=== PATIENT | female | born 1965 | race Caucasian/White ===

== ENCOUNTER → 2016-07-05 | Outpatient (CLI) | payer MEDICAID | LOC: FIMAGING 14:40 | DX: G43.709 Chronic migraine without aura, not intractable, without status migrainosus (principal); R51 Headache; S09.93XD Unspecified injury of face, subsequent encounter; F07.81 Postconcussional syndrome ==

== ENCOUNTER → 2016-07-06 | Outpatient (CLI) | payer MEDICAID | LOC: BRMIMAGING 12:55 | DX: Z90.710 Acquired absence of both cervix and uterus (principal) | CPT/HCPCS: 76770-PO; 76856-PO ==

== ENCOUNTER → 2016-07-07 | Outpatient (CLI) | payer MEDICAID ==
[~2016-07-07] MED LIST: IOPAMIDOL (ISOVUE-300) 100 ML BTL IV ONE
== END ==
LOC: FIMAGING 12:07
DX: M12.88 Other specific arthropathies, not elsewhere classified, other specified site (principal); M43.12 Spondylolisthesis, cervical region; M99.71 Connective tissue and disc stenosis of intervertebral foramina of cervical region; M48.02 Spinal stenosis, cervical region
CPT/HCPCS: Q9967

== ENCOUNTER → 2016-07-20 | Outpatient (CLI) | payer MEDICAID | LOC: FIMAGING 08:35 | PROVIDERS: ATTEND Internal Medicine Gastroenterology | DX: K31.84 Gastroparesis (principal) | CPT/HCPCS: A9541 ==

== ENCOUNTER 2017-02-23 21:07 | Emergency (ER) | payer MEDICAID ==
[2017-02-23] MEDS ORDERED: DIAZEPAM 10 MG/2 ML SYR IVP ONE (21:31)
--- NOTE | 2017-02-23 21:31 | EDPHY ---
H & P Time Seen by Provider: 02/23/17 21:16 HPI/ROS: CHIEF COMPLAINT: Severe neck pain, weakness left arm HISTORY OF PRESENT ILLNESS: 51-year-old female presents to the emergency department with severe neck pain and weakness in the left upper extremity. The patient has had a history of severe neck pain. The patient presents to the emergency department now with weakness in the left upper extremity. She had a recent steroid injection done 1 week ago in her neck without relief. She has had ongoing problems but today developed weakness in her left arm and does not feel that she can move her neck without severe pain. She feels that her neck is "very weak ". Denies back pain. Denies chest pain or difficulty breathing. Denies abdominal pain or vomiting. No other new reported trauma. REVIEW OF SYSTEMS: Constitutional: No fever, no chills. Eyes: No double or blurry vision. ENT: No sore throat. Respiratory: No cough, no shortness of breath. Cardiac: No chest pain. Gastrointestinal: No abdominal pain, vomiting or diarrhea. Genitourinary: No dysuria. Musculoskeletal: As above. No back pain. Skin: No rashes. Neurological: No headache. Past Medical/Surgical History: Chronic neck pain Social History: and lives in [place] Smoking Status: Never smoked Physical Exam: General Appearance: Alert, moderate distress. Tearful, holding her left side of her neck. Eyes: Pupils equal and round. Extraocular motions are all intact. ENT: Mouth: Mucous membranes moist. Respiratory: No wheezing, rhonchi, or rales, lungs are clear to auscultation. Cardiovascular: Regular rate and rhythm. Gastrointestinal: Abdomen is soft and nontender, no masses, no rebound or guarding, bowel sounds normal. Neurological: Alert and oriented x 3, cranial nerves II through XII grossly intact Skin: Warm and dry, no rashes. Musculoskeletal: Nontender to palpate along the cervical, thoracic or lumbar spine. Neck is supple. Extremities: Weakness in her cullet crusher and washer in the left hand compared to the right. Weakness in her biceps and triceps on the left side. Psychiatric: Patient is oriented X 3, there is no agitation. Constitutional: Initial Vital Signs Temperature (C) 36.9 C 02/23/17 21:16 Heart Rate 79 02/23/17 21:16 Respiratory Rate 18 02/23/17 21:16 Blood Pressure 141/81 H 02/23/17 21:16 O2 Sat (%) 97 02/23/17 21:16 O2 Delivery Mode Room Air Allergies/Adverse Reactions: erythromycin base Allergy (Verified 02/23/17 21:20) Penicillins Allergy (Verified 02/23/17 21:20) soy Allergy (Verified 02/23/17 21:20) Home Medications: Medication Instructions Recorded Ondansetron Odt [Zofran Odt] 4 - 8 mg PO Q4PRN PRN #4 tab 07/05/15 Phenazopyridine HCl [Pyridium 200 mg PO TID PRN #6 tab 07/05/15 200mg (RX)] Sulfamethox/Tmp 800/160 mg 1 tab PO BID #14 tab 07/05/15 [Bactrim Ds] Medical Decision Making - Diagnostics Imaging Results: Imaging Impressions Cervical Spine MRI 02/23/17 21:25 Impression: 1. Left foraminal stenoses, mild at C2-C3, moderate to severe at C3-C4, moderate C4-C5 and mild at C5-C6. 2. Canal compromise, mild from C2 to C5, moderate at C5-C6. 3. No cord signal abnormalities. 4. Allowing for differences in modality, findings are similar to CT cervical spine dated 07/07/2016. Dr. Gu discussed these findings by telephone with UMESH HERNANDEZ on 2016 at 23:51. Imaging: Discussed imaging studies w/ audio specialist Radiologist, I viewed and interpreted images myself ED Course/Re-evaluation: 51-year-old female presents to the emergency department with severe neck pain and left arm weakness. Patient has a known history of degenerative disc disease. She had a recent steroid injection 1 week ago without relief. MRI of the cervical spine has been ordered and is pending. Patient received 5 mg of IV Valium. MRI of the cervical spine reveals diffuse degenerative changes without any cord signal abnormality. This was compared with CT scan of the cervical spine from June of 2016. I spoke with Dr. Jorge Wagner, on-call neurosurgeon, who recommends that the patient be admitted for pain control to the hospitalist if she requires that , however he did not want her to have any narcotic medication or any benzodiazepines. This was explained to the patient. She understands that she will not receive narcotics while in the emergency department. The patient states that she will take her own narcotic medication then. She understands that she will not receive narcotic medication in the hospital. I recommended that she have close follow-up with her neurosurgeon. She was offered admission to the hospital with consultation with Neurosurgery and the patient agrees. I did offer Toradol IV for her pain and the patient refused. 1:11 a.m.: The patient does not want to be admitted to the hospital she is leaving the emergency department on her own accord. As she is leaving she is able to put her own she was on. She is able to dress herself. She is ambulatory. Differential Diagnosis: Including but not limited to herniated nucleus pulposus, vertebral body fracture , cord injury, degenerative disc disease, muscular spasm - Data Points Medications Given: Discontinued Medications Diazepam (Valium Injection) 5 mg IVP EDNOW ONE Stop: 02/23/17 21:32 Last Admin: 02/23/17 21:45 Dose: 5 mg Methylprednisolone Sodium Succinate (Solu-Medrol) 125 mg IVP EDNOW ONE Stop: 02/24/17 00:14 Last Admin: 02/24/17 00:21 Dose: 125 mg Departure - Departure Clinical Impression: Chronic neck pain, Weakness of left upper extremity Condition: Good Instructions: Neck Pain (ED) Additional Instructions: You declined admission to the hospital. You should have close follow-up with your neurosurgeon this week to recheck. Referrals: Will Dela Cruz MD [Medical Doctor] - 1-2 days without fail (Neurosurgeon)
[2017-02-23 23:07] VITALS: RESP 16
[2017-02-24] MEDS ORDERED: methylPREDNISolone SOD SUCC 125 MG/2 ML VIAL IVP ONE (00:13)
[2017-02-24 00:22] VITALS: TEMP 97.9
[2017-02-24 01:17] VITALS: BP 113/64; PULSE 66; O2SAT 96
== END 2017-02-24 01:17 | disposition home or self-care (01) ==
DX: M54.2 Cervicalgia (principal); G89.29 Other chronic pain; M62.81 Muscle weakness (generalized)
CPT/HCPCS: 96374; J2930

== ENCOUNTER 2017-06-02 10:18 | Emergency (ER) | payer OTHER, MEDICAID ==
[2017-06-02 10:28] VITALS: TEMP 98
--- NOTE | 2017-06-02 10:58 | EDPHY ---
H & P Stated Complaint: gu- surg 1 month ago Time Seen by Provider: 06/02/17 10:30 HPI/ROS: CHIEF COMPLAINT: Urinary infection HISTORY OF PRESENT ILLNESS: Patient is a 51-year-old female with a history of cystocele with surgical repair 6 months ago in [place]. She states that she has been taking Macrobid for the last 6 days. She states that she is having frequent urination as well as burning and some right flank pain. She occasionally has to self cath in order to urinate. When she does that she notices some blood. It is also very painful to self catheterization. She tried calling her surgeon's office but was not able to get through. She has been texting him. She has not had a fever. No nausea vomiting. No abdominal pain. REVIEW OF SYSTEMS: Constitutional: denies: chills, fever, recent illness, recent injury EENTM: denies: blurred vision, double vision, nose congestion Respiratory: denies: cough, shortness of breath Cardiac: denies: chest pain, irregular heart rate, lightheadedness, palpitations Gastrointestinal/Abdominal: denies: abdominal pain, diarrhea, nausea, vomiting, blood streaked stools Genitourinary: See HPI Musculoskeletal: denies: joint pain, muscle pain Skin: denies: lesions, rash, jaundice, bruising Neurological: denies: headache, numbness, paresthesia, tingling, dizziness, weakness Hematologic/Lymphatic: denies: blood clots, easy bleeding, easy bruising Immunologic/allergic: denies: HIV/AIDS, transplant EXAM: GENERAL: Well-appearing, well-nourished and in no acute distress. HEAD: Atraumatic, normocephalic. EYES: Pupils equal round and reactive to light, extraocular movements intact, sclera anicteric, conjunctiva are normal. ENT: TMs normal, nares patent, oropharynx clear without exudates. Moist mucous membranes. NECK: Normal range of motion, supple without lymphadenopathy or JVD. LUNGS: Breath sounds clear to auscultation bilaterally and equal. No wheezes rales or rhonchi. HEART: Regular rate and rhythm without murmurs, rubs or gallops. ABDOMEN: Soft, nontender, normoactive bowel sounds. No guarding, no rebound. No masses appreciated. No suprapubic tenderness BACK: No CVA tenderness, no spinal tenderness, step-offs or deformities EXTREMITIES: Normal range of motion, no pitting or edema. No clubbing or cyanosis. NEUROLOGICAL: Cranial nerves II through XII grossly intact. Normal speech, normal gait. 5/5 strength, normal movement in all extremities, normal sensation PSYCH: Normal mood, normal affect. SKIN: Warm, dry, normal turgor, no visible rashes or lesions. Source: Patient Exam Limitations: No limitations - Personal History LMP (Females 10-55): Post Menopausal Current Tetanus Diphtheria and Acellular Pertussis (TDAP): Unsure - Medical/Surgical History Hx Asthma: Yes Hx Chronic Respiratory Disease: No Hx Diabetes: No Hx Cardiac Disease: No Hx Renal Disease: No Hx Cirrhosis: No Hx Alcoholism: No Hx HIV/AIDS: No Hx Splenectomy or Spleen Trauma: No Other PMH: Pelvic intersital DX, frequent pylonephritis, multiple pelvic surgeries, rectocele, cystocele. - Family History Significant Family History: No pertinent family hx - Social History Smoking Status: Never smoked Alcohol Use: Sober Constitutional: Initial Vital Signs Temperature (C) 36.6 C 06/02/17 10:24 Heart Rate 77 06/02/17 10:24 Respiratory Rate 18 06/02/17 10:24 Blood Pressure 130/94 H 06/02/17 10:24 O2 Sat (%) 97 06/02/17 10:24 O2 Delivery Mode Room Air Allergies/Adverse Reactions: erythromycin base Allergy (Verified 02/23/17 21:20) Penicillins Allergy (Verified 02/23/17 21:20) soy Allergy (Verified 02/23/17 21:20) Home Medications: Medication Instructions Recorded Ketorolac Tromethamine [Toradol] 10 mg PO Q6H #16 tab 06/02/17 Macrobid 06/02/17 levOFLOXACIN [levAQUIN] 750 mg PO DAILY #10 tab 06/02/17 Medical Decision Making ED Course/Re-evaluation: The patient states that Levaquin is worked well for her in the past. I will add this to the Macrobid. She is not . White count is reassuring. 11:50 a.m. the patient is feeling much better after Toradol. She has been started on antibiotics. She will follow up with her surgeon. We discussed indications for returning. She is happy and laughing and declines further workup or testing at this time. Differential Diagnosis: Partial list of the Differential diagnosis considered include but were not limited to; urinary tract infection, bladder prolapse, urinary retention, pyelonephritis and although unlikely based on the history and physical exam, I also considered sepsis, rupture, perforation. I discussed these differential diagnoses and the plan with the patient as well as the usual and expected course. The patient understands that the diagnosis is provisional and that in medicine we are not always correct and that further workup is often warranted. Usual and customary warnings were given. All of the patient's questions were answered. The patient was instructed to return to the emergency department should the symptoms at all worsen or return, otherwise to followup with the physician as we discussed. - Data Points Laboratory Results: Laboratory Results 06/02/17 11:00 06/02/17 11:06/02/17 06/02/17 06/02/17 11:00 11:00 11:00 WBC RBC Hgb Hct MCV MCH MCHC RDW Plt Count MPV Neut % (Auto) Lymph % (Auto) [place] % (Auto) Eos % (Auto) Baso % (Auto) Nucleat RBC Rel Count Absolute Neuts (auto) Absolute Lymphs (auto) Absolute Monos (auto) Absolute Eos (auto) Absolute Basos (auto) Absolute Nucleated RBC Immature Gran % Immature Gran # Sodium 142 mEq/L mEq/L (135-145) Potassium 4.0 mEq/L mEq/L (3.5-5.2) Chloride 102 mEq/L mEq/L (97-110) Carbon Dioxide 24 mEq/l mEq/l (22-31) Anion Gap 16 mEq/L mEq/L (8-16) BUN 12 mg/dL mg/dL (7-23) Creatinine 0.6 mg/dL mg/dL (0.6-1.0) Estimated GFR > 60 Glucose 93 mg/dL mg/dL (70-100) Calcium 9.3 mg/dL mg/dL (8.5-10.4) Beta HCG, Qual NEGATIVE Urine Color YELLOW Urine Appearance HAZY Urine pH 6.0 (5.0-7.5) Ur Specific [place] <= 1.005 (1.002-1.030) Urine Protein NEGATIVE (NEGATIVE) Urine Ketones NEGATIVE (NEGATIVE) Urine Blood 3+ H (NEGATIVE) Urine Nitrate NEGATIVE (NEGATIVE) Urine Bilirubin NEGATIVE (NEGATIVE) Urine Urobilinogen 0.2 EU EU (0.2-1.0) Ur Leukocyte Esterase NEGATIVE (NEGATIVE) Urine RBC >182 /hpf H /hpf (0-3) Urine WBC 0-1 /hpf /hpf (0-3) Ur Epithelial Cells 1+ /lpf /lpf (NONE-1+) Ur Renal Epithelial Cell 1+ /hpf H /hpf (NONE SEEN) Urine Bacteria 1+ /hpf H /hpf (NONE SEEN) Urine Mucus TRACE /lpf /lpf (NONE-1+) Urine Glucose NEGATIVE (NEGATIVE) 06/02/17 11:00 WBC 6.58 10^3/uL 10^3/uL (3.80-9.50) RBC 4.80 10^6/uL 10^6/uL (4.18-5.33) Hgb 14.8 g/dL g/dL (12.6-16.3) Hct 41.9 % % (38.0-47.0) MCV 87.3 fL fL (81.5-99.8) MCH 30.8 pg pg (27.9-34.1) MCHC 35.3 g/dL g/dL (32.4-36.7) RDW 12.5 % % (11.5-15.2) Plt Count 356 10^3/uL 10^3/uL (150-400) MPV 8.5 fL L fL (8.7-11.7) Neut % (Auto) 57.4 % % (39.3-74.2) Lymph % (Auto) 35.3 % % (15.0-45.0) [place] % (Auto) 5.3 % % (4.5-13.0) Eos % (Auto) 0.9 % % (0.6-7.6) Baso % (Auto) 0.8 % % (0.3-1.7) Nucleat RBC Rel Count 0.0 % % (0.0-0.2) Absolute Neuts (auto) 3.78 10^3/uL 10^3/uL (1.70-6.50) Absolute Lymphs (auto) 2.32 10^3/uL 10^3/uL (1.00-3.00) Absolute Monos (auto) 0.35 10^3/uL 10^3/uL (0.30-0.80) Absolute Eos (auto) 0.06 10^3/uL 10^3/uL (0.03-0.40) Absolute Basos (auto) 0.05 10^3/uL 10^3/uL (0.02-0.10) Absolute Nucleated RBC 0.00 10^3/uL 10^3/uL (0-0.01) Immature Gran % 0.3 % % (0.0-1.1) Immature Gran # 0.02 10^3/uL 10^3/uL (0.00-0.10) Sodium Potassium Chloride Carbon Dioxide Anion Gap BUN Creatinine Estimated GFR Glucose Calcium Beta HCG, Qual Urine Color Urine Appearance Urine pH Ur Specific [place] Urine Protein Urine Ketones Urine Blood Urine Nitrate Urine Bilirubin Urine Urobilinogen Ur Leukocyte Esterase Urine RBC Urine WBC Ur Epithelial Cells Ur Renal Epithelial Cell Urine Bacteria Urine Mucus Urine Glucose Medications Given: Discontinued Medications Hydromorphone HCl (Dilaudid) 0.5 mg IVP EDNOW ONE Stop: 06/02/17 11:05 Last Admin: 06/02/17 11:13 Dose: 0.5 mg Ketorolac Tromethamine (Toradol) 15 mg IVP EDNOW ONE Stop: 06/02/17 11:28 Last Admin: 06/02/17 11:36 Dose: 30 mg Levofloxacin (Levaquin) 750 mg PO EDNOW ONE PRN Reason: Protocol Stop: 06/02/17 11:23 Last Admin: 06/02/17 11:36 Dose: 750 mg Ondansetron HCl (Zofran) 4 mg IVP EDNOW ONE Stop: 06/02/17 11:05 Last Admin: 06/02/17 11:13 Dose: 4 mg Departure - Departure Disposition: Home, Routine, Self-Care Clinical Impression: Urinary tract infection Qualifiers: Urinary tract infection type: acute cystitis Hematuria presence: with hematuria Qualified Code(s): N30.01 - Acute cystitis with hematuria Condition: Fair Instructions: Ketorolac (By mouth), Levofloxacin (By mouth), Urinary Tract Infection in Women (ED), Catheter-associated Urinary Tract Infection (ED) Additional Instructions: Do not take ibuprofen if your taking the ketorolac. Referrals: CARY FORD [Other] - As per Instructions Prescriptions: Ketorolac Tromethamine [Toradol] 10 mg PO Q6H #16 tab levOFLOXACIN [levAQUIN] 750 mg PO DAILY #10 tab
[2017-06-02] MEDS ORDERED: HYDROmorphONE/DILAUDID 1 MG/ML INJ IVP ONE (11:04)
[2017-06-02] MEDS ORDERED: ONDANSETRON 4 MG/2 ML VIAL IVP ONE (11:04)
[2017-06-02 11:05] LABS: PLATELET COUNT 356 10^3/uL (150-400)
[2017-06-02] MEDS ORDERED: KETOROLAC 30 MG/1 ML SDV IVP ONE (11:27)
[2017-06-02 12:25] VITALS: BP 134/72; PULSE 70; RESP 16; O2SAT 96
== END 2017-06-02 12:05 | disposition home or self-care (01) ==
LOC: CED 10:18
DX: N30.01 Acute cystitis with hematuria (principal); B96.89 Other specified bacterial agents as the cause of diseases classified elsewhere; J45.909 Unspecified asthma, uncomplicated
CPT/HCPCS: 96374; 96375; 99284; J1170; J1885; J2405; 80048-PO; 81003-PO; 81015-PO; 84703-PO; 85025-PO

== ENCOUNTER 2017-06-13 09:51 | Emergency (ER) | payer OTHER, MEDICAID ==
[2017-06-13] MEDS ORDERED: ONDANSETRON 4 MG/2 ML VIAL IVP ONE (10:03)
[2017-06-13] MEDS ORDERED: HYDROmorphONE/DILAUDID 1 MG/ML INJ IVP ONE ×2 (10:04→10:44)
[2017-06-13] MEDS ORDERED: LORazepam 2 MG/ML INJ ONE (10:21)
[2017-06-13 10:36] LABS: PLATELET COUNT 321 10^3/uL (150-400)
--- NOTE | 2017-06-13 10:37 | EDPHY ---
H & P Stated Complaint: Back/Bladder pain Time Seen by Provider: 06/13/17 09:53 HPI/ROS: This patient complains of severe right lower quadrant and suprapubic pain with gradual onset over the past 2 days but worsened this morning to 9/10 intensity sharp in achy and pressure. She feels that there is some distension to her lower belly as well. She had lower urinary obstruction last week and was seen in her urologist's office with a catheter placed at that time. She has had urinary output to the catheter. She completed treatment for cystitis on Levaquin 4 days prior to arrival. Her recent history is also notable for cystocele repair 6 weeks ago. Patient reports that she has been having some pains ever since the cystocele repair but never anywhere this severe. ROS: Constitutional: She reports low-grade fevers to 99-100 over the past 2 days. No chills. No significant fatigue. HEENT: No complaints line pulmonary: No complaints line cardiovascular: No new complaints Musculoskeletal: She has chronic back pain and reports that she is scheduled for lumbar fusion at the end of this week. Neuro: Patient reports that she has remained radiculopathy in her arm but none in her legs. She denies any numbness tingling weakness in her legs and denies any saddle paresthesias. Pulmonary: No complaints Cardiovascular: No complaints GI: She reports some constipation recently but she was able to have a bowel movement today after taking a stool softener. She reports nausea but no vomiting. : As per HPI. She she has noticed any significant change in the color of her urine. She complains of right flank pain that started 2 days ago as well now is bilateral-moderate intensity that feels like"kidney pain". Integumentary: No skin rash. 10 point ROS is otherwise negative. Source: Patient - Personal History LMP (Females 10-55): Post Menopausal Current Tetanus Diphtheria and Acellular Pertussis (TDAP): Yes - Medical/Surgical History Hx Asthma: Yes Hx Chronic Respiratory Disease: No Hx Diabetes: No Hx Cardiac Disease: No Hx Renal Disease: No Hx Cirrhosis: No Hx Alcoholism: No Hx HIV/AIDS: No Hx Splenectomy or Spleen Trauma: No Other PMH: Pelvic intersital DX, frequent pylonephritis, multiple pelvic surgeries, rectocele, cystocele, indwelling catheter, recent weight loss ( unintentional) - Family History Significant Family History: No pertinent family hx - Social History Smoking Status: Never smoked Alcohol Use: Occasionally Drug Use: None - Physical Exam Exam: General Appearance: Patient is alert in distress due to pain. Eyes: Pupils equal and round no pallor or injection. ENT, Mouth: Mucous membranes moist. Respiratory: There are no retractions, lungs are clear to auscultation. Cardiovascular: Regular rate and rhythm. No murmur gallop or rub Gastrointestinal: Normoactive, soft with exquisite right lower quadrant and suprapubic tenderness. Patient reports that she is distended no lower belly this is not overly evident on exam. In the region just right of midline around the area of the surgical scar there does seem to be a localized area of slight swelling and tenderness that may represent abdominal hernia. Rectal exam: No external hemorrhoids. No stool in the vault. Nontender. Neurological: GCS 15 with no focal deficits. Skin: Warm and dry, no rashes. Musculoskeletal: Neck is supple nontender. Extremities are symmetrical, full range of motion. Psychiatric: Mood and affect normal DIFFERENTIAL DIAGNOSIS: After history and physical exam differential diagnosis was considered for catheter failure with bladder distension, UTI, abdominal wall hernia, appendicitis, constipation Constitutional: Initial Vital Signs Temperature (C) 37.2 C 06/13/17 09:58 Heart Rate 110 H 06/13/17 09:58 Respiratory Rate 18 06/13/17 09:58 Blood Pressure 128/85 H 06/13/17 09:58 O2 Sat (%) 93 06/13/17 09:58 O2 Delivery Mode Room Air O2 (L/minute) 2 Allergies/Adverse Reactions: erythromycin base Allergy (Verified 02/23/17 21:20) Penicillins Allergy (Verified 02/23/17 21:20) soy Allergy (Verified 02/23/17 21:20) Home Medications: Medication Instructions Recorded Ketorolac Tromethamine [Toradol] 10 mg PO Q6H #16 tab 06/02/17 levOFLOXACIN [levAQUIN] 750 mg PO DAILY #10 tab 06/02/17 Cefdinir [Omnicef (*)] 300 mg PO BID #10 cap 06/13/17 Docusate Sodium [Colace 100 MG (*)] 100 mg PO BID #30 cap 06/13/17 Hyoscyamine Sulfate [Levsin, 0.125 - 0.25 tab SL Q6 PRN #20 tab 06/13/17 Hyomax-Sl 0.125 mg (*)] Sulfamethox/Tmp 800/160 mg 1 tab PO BID #10 tab 06/13/17 [Bactrim Ds] Medical Decision Making - Diagnostics Imaging Results: Imaging Impressions Abdomen CT 06/13/17 11:14 Impression: 1. There is pronounced constipation (cecum to rectosigmoid), and nonvisualization of the appendix. 2. Status post hysterectomy, and history of a rectocele and cystocele. 3. Decompressed urinary bladder, which contains a Ramirez catheter. 4. Nonobstructive right nephrolithiasis. Findings were discussed with DONTRELL BIRD MD at 12:18, on 06/13/2017. Imaging: Discussed imaging studies w/ calliope player Radiologist ED Course/Re-evaluation: Labs: Normal CBC and basic metabolic panel. Urinalysis is borderline positive with 5-10 white cells, RBCs and bacteria. LFTs were added on the are also normal. IV Zofran with resolution of nausea., Dilaudid and Ativan with partial improvement in pain. I was not able to appreciate significant bladder distension on point of care ultrasound. Our nurse, Hetal is unable to with dry urine from current catheter despite position change. Patient is treated with an additional dose of Dilaudid and Ativan and then catheter changes performed by our nurse for suspicion of urinary obstruction. Urinary catheter successfully changed without significant urinary output. Patient had brief mild hypoxia to the 80s from 2nd round of analgesics treated with nasal cannula O2 with return to O2 sat in the 90s. Patient requested further analgesia during workup. Given possible renal colic patient started on a lidocaine drip. After discussing the CT results with Dr. Ha Perez and reviewing the CT myself - patient has severe constipation with cecum actually touching rectum. Patient is then treated with Levsin with some relief. I counseled regarding constipation. The patient is expression of pain seemed out of proportion with finding of only constipation and cystitis. She may have had some significant bowel cramping associated with this. It is also possible that she had mild bladder distention from a kink in the urinary catheter that resolved with movement. When our nurse replaced the catheter there is no significant residual urine with a new catheter. I also do not appreciate evidence of urinary retension on bedside ultrasound. She requested opiates for pain control at discharge which I declined offer explaining that they would worsen her primary underlying condition of constipation. Encouraged her to use ibuprofen, Tylenol and Levsin instead. Also provided a bowel regimen for constipation or discharge instructions and provided a Colace prescription. Answered all her questions prior to discharge, reviewed her labs with her and also reviewed her CT scan images with her. She understands need to follow up with her urologist and primary care physician. She will return to the emergency department if she has any significant worsening despite the treatment plan. Is noted that the patient left all of her prescriptions and discharge instructions here. Our nurse will call her at home encouraging her or her daughter to come pick them up. - Data Points Laboratory Results: Laboratory Results 06/13/17 10:30 06/13/17 10:30 06/13/17 06/13/17 06/13/17 12:34 10:30 10:30 WBC RBC Hgb Hct MCV MCH MCHC RDW Plt Count MPV Neut % (Auto) Lymph % (Auto) [place] % (Auto) Eos % (Auto) Baso % (Auto) Nucleat RBC Rel Count Absolute Neuts (auto) Absolute Lymphs (auto) Absolute Monos (auto) Absolute Eos (auto) Absolute Basos (auto) Absolute Nucleated RBC Immature Gran % Immature Gran # Sodium 141 mEq/L mEq/L (135-145) Potassium 4.2 mEq/L mEq/L (3.5-5.2) Chloride 100 mEq/L mEq/L (97-110) Carbon Dioxide 25 mEq/l mEq/l (22-31) Anion Gap 16 mEq/L mEq/L (8-16) BUN 13 mg/dL mg/dL (7-23) Creatinine 0.7 mg/dL mg/dL (0.6-1.0) Estimated GFR > 60 Glucose 71 mg/dL mg/dL (70-100) Calcium 9.2 mg/dL mg/dL (8.5-10.4) Total Bilirubin 0.4 mg/dL mg/dL (0.1-1.4) Conjugated Bilirubin 0.1 mg/dL mg/dL (0.0-0.5) Unconjugated Bilirubin 0.3 mg/dL mg/dL (0.0-1.1) AST 15 IU/L IU/L (14-46) ALT 26 IU/L IU/L (9-52) Alkaline Phosphatase 59 IU/L IU/L (38-126) Total Protein 6.6 g/dL g/dL (6.3-8.2) Albumin 3.8 g/dL g/dL (3.5-5.0) Urine Color Urine Appearance Urine pH Ur Specific [place] Urine Protein Urine Ketones Urine Blood Urine Nitrate Urine Bilirubin Urine Urobilinogen Ur Leukocyte Esterase Urine RBC Urine WBC Ur Epithelial Cells Calcium Oxalate Crystal Urine Bacteria Urine Glucose Stool Occult Bld Scrn NEGATIVE (NEGATIVE) 06/13/17 06/13/17 10:30 10:09 WBC 7.61 10^3/uL 10^3/uL (3.80-9.50) RBC 4.55 10^6/uL 10^6/uL (4.18-5.33) Hgb 14.1 g/dL g/dL (12.6-16.3) Hct 39.7 % % (38.0-47.0) MCV 87.3 fL fL (81.5-99.8) MCH 31.0 pg pg (27.9-34.1) MCHC 35.5 g/dL g/dL (32.4-36.7) RDW 12.9 % % (11.5-15.2) Plt Count 321 10^3/uL 10^3/uL (150-400) MPV 8.7 fL fL (8.7-11.7) Neut % (Auto) 63.2 % % (39.3-74.2) Lymph % (Auto) 29.8 % % (15.0-45.0) [place] % (Auto) 4.7 % % (4.5-13.0) Eos % (Auto) 1.1 % % (0.6-7.6) Baso % (Auto) 0.7 % % (0.3-1.7) Nucleat RBC Rel Count 0.0 % % (0.0-0.2) Absolute Neuts (auto) 4.81 10^3/uL 10^3/uL (1.70-6.50) Absolute Lymphs (auto) 2.27 10^3/uL 10^3/uL (1.00-3.00) Absolute Monos (auto) 0.36 10^3/uL 10^3/uL (0.30-0.80) Absolute Eos (auto) 0.08 10^3/uL 10^3/uL (0.03-0.40) Absolute Basos (auto) 0.05 10^3/uL 10^3/uL (0.02-0.10) Absolute Nucleated RBC 0.00 10^3/uL 10^3/uL (0-0.01) Immature Gran % 0.5 % % (0.0-1.1) Immature Gran # 0.04 10^3/uL 10^3/uL (0.00-0.10) Sodium Potassium Chloride Carbon Dioxide Anion Gap BUN Creatinine Estimated GFR Glucose Calcium Total Bilirubin Conjugated Bilirubin Unconjugated Bilirubin AST ALT Alkaline Phosphatase Total Protein Albumin Urine Color YELLOW Urine Appearance HAZY Urine pH 5.5 (5.0-7.5) Ur Specific [place] 1.025 (1.002-1.030) Urine Protein NEGATIVE (NEGATIVE) Urine Ketones NEGATIVE (NEGATIVE) Urine Blood 3+ H (NEGATIVE) Urine Nitrate NEGATIVE (NEGATIVE) Urine Bilirubin NEGATIVE (NEGATIVE) Urine Urobilinogen 0.2 EU EU (0.2-1.0) Ur Leukocyte Esterase TRACE H (NEGATIVE) Urine RBC 25-50 /hpf H /hpf (0-3) Urine WBC 3-5 /hpf H /hpf (0-3) Ur Epithelial Cells 2+ /lpf H /lpf (NONE-1+) Calcium Oxalate Crystal 1+ /hpf /hpf (NONE-1+) Urine Bacteria 1+ /hpf H /hpf (NONE SEEN) Urine Glucose NEGATIVE (NEGATIVE) Stool Occult Bld Scrn Medications Given: Discontinued Medications Hydromorphone HCl (Dilaudid) 1 mg IVP EDNOW ONE Stop: 06/13/17 10:05 Last Admin: 06/13/17 10:18 Dose: 1 mg Hydromorphone HCl (Dilaudid) 0.5 mg IVP EDNOW ONE Stop: 06/13/17 10:45 Last Admin: 06/13/17 10:49 Dose: 0.5 mg Hyoscyamine Sulfate (Levsin, Hyomax-Sl) 0.125 mg PO EDNOW ONE Stop: 06/13/17 12:19 Last Admin: 06/13/17 12:23 Dose: 0.125 mg Lidocaine HCl 47 mg/ Sodium (Chloride) 104.7 mls @ 600 mls/hr IV EDNOW ONE Stop: 06/13/17 12:03 Last Admin: 06/13/17 12:07 Dose: 104.7 mls Lorazepam (Ativan Injection) 1 mg IVP EDNOW ONE Stop: 06/13/17 10:41 Last Admin: 06/13/17 10:41 Dose: 1 mg Lorazepam (Ativan Injection) 0.5 mg IVP EDNOW ONE Stop: 06/13/17 10:45 Last Admin: 06/13/17 10:49 Dose: 0.5 mg Ondansetron HCl (Zofran) 4 mg IVP EDNOW ONE Stop: 06/13/17 10:04 Last Admin: 06/13/17 10:18 Dose: 4 mg Departure - Departure Disposition: Home, Routine, Self-Care Clinical Impression: Lower abdominal pain, Cystitis Constipation Qualifiers: Constipation type: unspecified constipation type Qualified Code(s): K59.00 - Constipation, unspecified Condition: Good Instructions: Constipation (ED), Urinary Tract Infection in Women (ED) Additional Instructions: Diagnoses: 1. Constipation 2. Lower abdominal pain 3. Bladder infection Plan: Drink plenty fluids omnicef antibiotic Ibuprofen, Tylenol and Levsin for pain as needed. Colace stool softener-2 day Metamucil tendon 20 g a day Milk a magnesia-30 mL a day MiraLax 17 g 2 times a day [place] oil 1-2 tbsp a day Enemas as needed Avoid opiate narcotics as this will worsen her constipation and weight loss. Above plan until the having 1 more bowel movements today. If you start having loose stools then dropped 1 of these therapies that time starting from the bottom going up for the top the list. Call your primary care physician to arrange follow-up appointment for further evaluation Return for any significant worsening despite the treatment plan Referrals: NONE *PRIMARY CARE P,. [Primary Care Provider] - As per Instructions Salvatore Blanca MD [Medical Doctor] - As per Instructions Prescriptions: Cefdinir [Omnicef (*)] 300 mg PO BID #10 cap Docusate Sodium [Colace 100 MG (*)] 100 mg PO BID #30 cap Hyoscyamine Sulfate [Levsin, Hyomax-Sl 0.125 mg (*)] 0.125 - 0.25 tab SL Q6 PRN #20 tab PRN Reason: abdominal cramping Sulfamethox/Tmp 800/160 mg [Bactrim Ds] 1 tab PO BID #10 tab
[2017-06-13] MEDS ORDERED: LORazepam 2 MG/ML INJ IVP ONE ×2 (10:40→10:44)
[2017-06-13 10:55] VITALS: RESP 14
[2017-06-13] MEDS ORDERED: IOPAMIDOL (ISOVUE-300) 100 ML BTL ONE (11:25)
[2017-06-13] MEDS ORDERED: NS IV ONE (11:53)
[2017-06-13] MEDS ORDERED: LIDOCAINE IV ONE (11:53)
[2017-06-13] MEDS ORDERED: HYOSCYAMINE SULFATE 0.125 MG TAB PO ONE (12:18)
[2017-06-13 13:58] VITALS: BP 110/76; PULSE 76; TEMP 98.6; O2SAT 98
== END 2017-06-13 13:56 | disposition home or self-care (01) ==
LOC: CED 09:51
DX: N30.90 Cystitis, unspecified without hematuria (principal); K59.00 Constipation, unspecified; B96.89 Other specified bacterial agents as the cause of diseases classified elsewhere; J45.909 Unspecified asthma, uncomplicated
CPT/HCPCS: 74177; 96374; 96375; 99285; J1170; J2060; J2405; Q9967; 80048-PO; 80076-PO; 81003-PO; 81015-PO; 82270-PO; 85025-PO